=== PATIENT | male | born 1985 | race Caucasian/White ===

== ENCOUNTER 2020-12-06 12:35 | Emergency (ER) | payer OTHER ==
[~2020-12-06] VITALS: Ht 190.5 cm; Wt 133.8 kg
[2020-12-06 13:15] LABS: HEMATOCRIT 43.8 % (42.0-52.0); HEMOGLOBIN 14.4 gm/dL (14.0-18.0); MCH 27.4 pg (26.0-34.0); MPV 7.3 fl. (7.2-11.1); RBC 5.27 mil/uL (4.50-6.00); RDW-CV 13.3 % (10.5-14.5); WBC 8.8 thou/uL (4.0-11.0)
[2020-12-06 13:18] LABS: CREATININE 1.2 mg/dL (0.6-1.3)
--- NOTE | 2020-12-06 14:08 | EKG ---
[place] [address] ELECTROCARDIOGRAM REPORT Name: ALIREZA RIVAS Room: [facility]#: [id number] Admission: 12/06/20 Attend Phys: Discharge: Date of : 83 Date of Service: 12/06/20 1255 Report #: [id number] THIS REPORT FOR: //name// [facility] ED Test Date: 2020-12-06 Test Time: 12:55:11 Pat Name: ALIREZA RIVAS Department: Room: Gender: Open[employer] Developer: : 1985 Requested By: Blane Paredes Order Number: [id number] MD: John Velazquez Measurements Intervals [place] Rate: 75 P: -5 [place]: 154 QRS: 2 QRSD: 89 T: -2 QT: 373 QTc: 417 Interpretive Statements Sinus rhythm Borderline T abnormalities, inferior leads No previous ECG available for comparison Electronically Signed On 12-06-2020 14:07:52 CDT by John Velazquez [email or web address] <ELECTRONICALLY SIGNED> By: John Velazquez MD, [facility] 12/06/20 1407 1255 1255 John Velazquez MD, FAC /EPI
[2020-12-06] MEDS ORDERED: PRINIVIL20 MG PO (15:41)
[2020-12-06 15:52] VITALS: BP 168/88
== END 2020-12-06 15:53 | disposition home or self-care (01) ==
LOC: M.ERS 12:35
PROVIDERS: Emergency Medicine Emergency Medical Services
DX: I10 Essential (primary) hypertension (principal)